=== PATIENT | male | born 1985 | race Caucasian/White ===

== ENCOUNTER 2023-12-10 23:06 | Emergency (ER) | payer SELFPAY ==
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
[2023-12-11] MEDS ORDERED: MORPHINE 4 MG/ML SYR ONE ×2 (02:38→03:56)
[2023-12-11] MEDS ORDERED: ONDANSETRON 4 MG/2 ML VIAL ONE (02:38)
[2023-12-11] MEDS ORDERED: KETOROLAC 30 MG/ML INJ ONE (02:39)
[2023-12-11] MEDS ORDERED: NA CHLORIDE 0.9% 1,000 ML ONE (02:39)
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
[2023-12-11] MEDS ORDERED: HYDROCODONE/APAP 7.5/325 MG TAB ONE (03:42)
[2023-12-11 04:50] VITALS: BP 108/68; TEMP 97.7; O2SAT 100
[2023-12-11 06:58] LABS: Albumin 3.6 g/dL (3.4-5.0); Anion Gap 15.9 mEq/L (5.0-15.0); Bilirubin Total 0.4 mg/dL (0.2-1.0); Globulin 3.5 g/dL (2.3-3.5); Protein, Total 7.1 g/dL (6.4-8.2)
[2023-12-11 06:59] LABS: Potassium 3.9 mEq/L (3.5-5.1)
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
--- NOTE | 2023-12-13 10:48 | RAD REPORT ---
EXAM DESCRIPTION: CT - Chest Abdomen Pelvis W Cont - 12/11/2023 6:58 am CLINICAL HISTORY: Trauma. TECHNIQUE: Contiguous axial images obtained through the chest , abdomen and pelvis following the une ventful administration of IV contrast. Coronal and sagittal reformatted images provided. This exam was performed according to our departmental dose-optimization program, which includes autom ated exposure control, adjustment of the mA and/or kV according to patient size and/or use of iterati ve reconstruction technique. COMPARISON: No prior exams provided for comparison. FINDINGS: Lungs: No focal consolidation. Airways are patent. Pleura: No effusion. No pneumothorax. Heart and pericardium: The heart is normal in size. No pericardial effusion. Mediastinum and trever: Calcified hilar nodes Lower neck and chest wall: Unremarkable Vessels: Unremarkable Bones: Fracture of the right ninth rib posterolaterally Liver: Unremarkable Gallbladder and biliary system: Unremarkable Pancreas: Unremarkable Spleen: Unremarkable Adrenals: Unremarkable Kidneys: No evidence of urolithiasis or obstructive uropathy. Gl : No obstruction. No appreciable mucosal thickening. Appendix: No findings to suggest acute appendicitis. Urinary bladder: Unremarkable Reproductive: Unremarkable as visualized Lymph nodes: No pathologically enlarged lymph nodes. Peritoneum: No focal fluid collection. No free air. Vessels: No abdominal aortic aneurysm. Abdominal wall: Unremarkable Bones: Unremarkable IMPRESSION: 1. Fracture of the right ninth rib posterolaterally. No pneumothorax. 2. No other evidence of acute traumatic injury to the chest, abdomen, or pelvis. Electronically signed by: Valerio Sahni MD 12/11/2023 03:25 AM CDT Due to temporary technical issues with the PACS/Fluency reporting system, reports are being signed by the in house radiologist without review as a courtesy to ensure prompt reporting. The interpreting r adiologist is fully responsible for the content of the report.
== END 2023-12-11 04:27 | disposition home or self-care (01) ==
LOC: ER 23:06
DX: S22.31XA Fracture of one rib, right side, initial encounter for closed fracture (principal); S29.012A Strain of muscle and tendon of back wall of thorax, initial encounter; S29.011A Strain of muscle and tendon of front wall of thorax, initial encounter; M54.50 Low back pain, unspecified; R10.819 Abdominal tenderness, unspecified site; Y09 Assault by unspecified means
CPT/HCPCS: 36415; 71046; 71260; 74177; 80053; 96374; 96375; 99284; J2405; J7030; Q9967